=== PATIENT | male | born 1955 | race African-American/Black ===

== ENCOUNTER 2017-08-22 12:27 | Emergency (ER) | payer OTHER ==
[~2017-08-22] VITALS: Ht 175.3 cm; Wt 71.7 kg
[2017-08-22 12:42] VITALS: BP 158/99
--- NOTE | 2017-08-22 12:56 | Emergency Room Report ---
History of Present Illness General Chief Complaint: Upper Respiratory Illness Source: Patient Present Illness HPI 62 yo male presents to ER complaining of flu-like symptoms for the past week. Patient complains of cough and congestion during this time; also complains of sore throat. Reports cough with phlegm; states he used inhaler last night and felt better. Reports took Tylenol for fever and symptoms prior to ER visit. Reports taking OTC medications for cough symptoms. States was previously seen by primary care provider for flu-like symptoms a " few weeks ago". Denies chest pain, SOB, MENJIVAR, vision changes, rash. Hx of COPD. Reports hx of smoking cigarettes. Patient also complains of hx of watery diarrhea x3days. Patient reports last episode this morning, denies blood in stool. Denies recent travel out of state. Denies nausea, vomiting. States able to tolerate food and drinks PO. Allergies: Coded Allergies: No Known Allergies (Unverified , 08/22/17) Patient History Past Medical History: see triage record Reviewed Nursing Documentation: PMH: Agreed, PSxH: Agreed Nursing Documentation-PMH Past Medical History: No History, Except For Hx Hypertension: Yes Hx COPD: Yes Review of Systems All Other Systems: negative except mentioned in HPI Physical Exam Vital Signs Date Time Temp Pulse Resp B/P (MAP) Pulse Ox O2 Delivery O2 Flow Rate FiO2 08/22/17 12:30 97.9 64 18 156/101 98 Room Air 97.9 Sp02 EP Interpretation: reviewed, normal General Appearance: well appearing, no apparent distress, alert, GCS 15, non- toxic Head: normocephalic, atraumatic Eyes: bilateral eye normal inspection, bilateral eye PERRL, bilateral eye EOMI ENT: hearing grossly normal, normal pharynx, normal voice, TMs + canals normal , uvula midline, moist mucus membranes, nasal congestion, pharyngeal erythema Neck: normal inspection, full range of motion, no bony tend Respiratory: normal inspection, lungs clear, normal breath sounds, no rhonchi, no respiratory distress, no retraction, no accessory muscle use, no wheezing, speaking full sentences Cardiovascular #1: regular rate, rhythm Gastrointestinal: normal bowel sounds, non tender, soft, no mass, no organomegaly, non-distended, no guarding, no rebound Musculoskeletal: back normal, digits/nails normal, gait/station normal, normal range of motion, no calf tenderness Neurologic: alert, oriented x3, responsive, motor strength/tone normal, sensory intact, normal gait Psychiatric: mood/affect normal Skin: no rash Lymphatic: no adenopathy Medical Decision Making PA Attestation Dr. Moy is my supervising Physician whom patient management has been discussed with. Diagnostic Impression: Primary Impression: Atypical pneumonia Additional Impressions: COPD (chronic obstructive pulmonary disease) Diarrhea ER Course Pt presents to ED c/o cough and congestion. Patient also complains of diarrhea. DDX considered but are not limited to influenza, viral URI, pneumonia, strep throat, rhinitis, sinusitis. gastritis, enteritis. VITAL SIGNS are WNL, patient is afebrile. ER COURSE: Ordered EKG and CXR. Does not require breathing treatment at this time; benign physical exam. EKG shows bradycardia; no acute ST changes. Does not require treatment at this time. CXR negative for acute disease. Discuss results with patient. Will provide patient for antibiotics secondary to hx of COPD, prolonged cough, and subjective fever. DISCHARGE: -Rx provided for azithromycin. -Rx provided for promethazine cough syrup. -Patient declined need for albuterol, cough medication, or Tylenol at this time. -Patient advised to take Tylenol or Motrin at home for fever and pain symptoms. Informed patient to stay hydrated; diarrhea symptoms do not require treatment at this time. At this time pt is stable for d/c to home. Patient is resting comfortably, in no acute distress, nontoxic appearing. Patient to take medications as instructed Will provide with patient care instructions and any necessary prescriptions. Care plan and follow-up instructions provided. Patient instructed to follow-up with primary care provider in 3 - 5 days for further treatment and referral. Patient questions asked and answered. ER precautions given. Patient instructed to return to ER immediately for any new or worsening of symptoms including but not limited to increasing SOB, persistent fever. EKG Diagnostic Results Rate: bradycardiac Rhythm: NSR ST Segments: no acute changes ASA given to the pt in ED: No Rhythm Strip Diag. Results EP Interpretation: yes Rate: 50 Rhythm: NSR, no PVC's, no ectopy YISEL Scribe Text Heriberto Clay PA-C Chest X-Ray Diagnostic Results Chest X-Ray Diagnostic Results : Chest X-Ray Ordered: Yes # of Views/Limited/Complete: 1 View Indication: Chest Pain EP Interpretation: Yes PA Xray: Interpretation reviewed, by supervising MD, and agrees with findings. Interpretation: no consolidation, no effusion, no pneumothorax, no acute cardiopulmonary disease Impression: No acute disease YISEL Scribbria Text Heriberto Clay PA-C Last Vital Signs Date Time Temp Pulse Resp B/P (MAP) Pulse Ox O2 Delivery O2 Flow Rate FiO2 08/22/17 12:42 98.0 68 18 158/99 99 Room Air 98.0 Disposition: HOME, SELF-CARE Condition: Stable Scripts Promethazine Hcl (PROMETHAZINE HCL*) 6.25 Mg/5 Ml Syrup 5 ML ORAL Q8H, #120 ML 0 Refills Prov: Ravinder Clay 08/22/17 Azithromycin* (ZITHROMAX*) 250 Mg Tablet 250 MG ORAL DAILY, #6 TAB 0 Refills Take two tables once daily for 1 day, then one tablet once daily for 4 days. Prov: Ravinder Clay 08/22/17 Patient Instructions: Chronic Obstructive Pulmonary Disease Additional Instructions: Followup with primary care provider in 3 -5 days. Take medications as directed. Take Tylenol for pain symptoms. Do not use cough medication; may cause drowsiness; do not drive, operate heavy machinery and/or drink. Patient questions asked and answered. ER precautions given, patient instructed to return to ER immediately for any new or worsening of symptoms, including but not limited to fever, chest pain, SOB. Ravinder Clay Aug 22, 2017 12:56
--- NOTE | 2017-08-22 13:17 | Diagnostic Imaging Report ---
Indication: Cough Technique: One view of the chest Comparison: none Findings: Lungs and pleural spaces are clear. The heart size is upper limits of normal. The aorta is tortuous and elongated. Surgical clips are seen in the region of the gastroesophageal junction Impression: No acute process
[2017-08-22] MEDS ORDERED: ZITHROMAX250 MG ORAL (14:03)
[2017-08-22] MEDS ORDERED: PROMETHAZI6.25 MG/1 ORAL (14:03)
[2017-08-22 14:30] VITALS: BP_SYST 158; BP_SYST 165; BP_DIAS 111; BP_DIAS 99
--- NOTE | 2017-08-26 15:32 | Cardiology Report ---
APPROVED REPORT EKG Measurement Heart [id number] Sinus bradycardia Otherwise normal ECG
== END 2017-08-22 14:30 | disposition home or self-care (01) ==
LOC: EMR 13:02
DX: J18.9 Pneumonia, unspecified organism (principal); J44.9 Chronic obstructive pulmonary disease, unspecified; R19.7 Diarrhea, unspecified; Z87.891 Personal history of nicotine dependence; I10 Essential (primary) hypertension; R00.1 Bradycardia, unspecified
CPT/HCPCS: 71045; 93005; 99284

== ENCOUNTER 2019-02-21 12:53 | Emergency (ER) | payer OTHER ==
[~2019-02-21] VITALS: Ht 175.3 cm; Wt 77.6 kg
[~2019-02-21 12:53] MED LIST: PROMETHAZI6.25 MG/1 ORAL; ZITHROMAX250 MG ORAL
[2019-02-21 12:56] VITALS: BP 104/74
[2019-02-21] MEDS ORDERED: NKM (13:01)
--- NOTE | 2019-02-21 13:02 | NUR ---
ED Nurse Note: pt reported that he takes hypertensive and allergy and pain medications daily but could not recall names or dosages. pt will let nurse know when he remembers.
--- NOTE | 2019-02-21 13:12 | Emergency Room Report ---
History of Present Illness General Chief Complaint: Chest Pain Source: Patient Present Illness HPI Patient presents with complaints of left-sided chest pain Increased cough and congestion Patient reports that he has felt ill for the past 7 days was weak sleeping a lot Reports recent insect bites and swelling to the forearms which have improved Pain to the left upper chest is sharp intermittently appears to be related to his cough Denies any vomiting or diarrhea however reports decreased oral intake denies any neck pain or photophobia denies any recent travel Allergies: Coded Allergies: No Known Allergies (Unverified , 08/22/17) Patient History Past Medical History: see triage record Reviewed Nursing Documentation: PMH: Agreed; PSxH: Agreed Nursing Documentation-PMH Hx Cardiac Problems: No - h/o stroke in 2018, heart attack in 2010 Hx Hypertension: Yes Hx COPD: Yes Review of Systems All Other Systems: negative except mentioned in HPI Physical Exam Vital Signs Date Time Temp Pulse Resp B/P (MAP) Pulse Ox O2 Delivery O2 Flow Rate FiO2 02/21/19 12:56 98.1 69 17 104/74 (84) 96 Room Air Sp02 EP Interpretation: reviewed, normal General Appearance: well appearing, no apparent distress Head: normocephalic, atraumatic Eyes: bilateral eye PERRL, bilateral eye EOMI ENT: hearing grossly normal, normal pharynx, TMs + canals normal, uvula midline Neck: full range of motion, supple, no meningismus, no bony tend Respiratory: lungs clear, normal breath sounds, no rhonchi, no respiratory distress, no retraction, no accessory muscle use Cardiovascular #1: normal peripheral pulses, regular rate, rhythm, no edema, no gallop, no JVD, no murmur Gastrointestinal: normal bowel sounds, non tender, soft, no mass, no organomegaly, non-distended, no guarding, no hernia, no pulsatile mass, no rebound Genitourinary: no CVA tenderness Musculoskeletal: normal inspection Neurologic: oriented x3, responsive, telephonic case manager III-XII nml as tested, motor strength/ tone normal, sensory intact Psychiatric: normal inspection, mood/affect normal Skin: no rash Lymphatic: normal inspection, no adenopathy Medical Decision Making Last Vital Signs Date Time Temp Pulse Resp B/P (MAP) Pulse Ox O2 Delivery O2 Flow Rate FiO2 02/21/19 12:56 98.1 69 17 104/74 (84) 96 Room Air Vince Davis DO Feb 21, 2019 13:12
[2019-02-21 13:42] LABS: BASOPHILS % (AUTO) 1.6 % (0.0-2.0); EOSINOPHILS % (AUTO) 5.8 % (0.0-3.0); HEMATOCRIT 45.9 % (42.0-52.0); MEAN CORPUSCULAR VOLUME 88 FL (80-99); MONOCYTES % (AUTO) 14.9 % (1.0-10.0); NEUTROPHILS % (AUTO) 45.7 % (45.0-75.0); PLATELET COUNT 214 K/UL (150-450); RED BLOOD COUNT 5.23 M/UL (4.70-6.10); RED CELL DISTRIBUTION WIDTH 12.6 % (11.6-14.8); WHITE BLOOD COUNT 9.8 K/UL (4.8-10.8)
[2019-02-21 13:46] LABS: APPEARANCE,URINE CLEAR; BILIRUBIN, URINE NEGATIVE (NEGATIVE); COLOR,URINE PALE YELLOW; GLUCOSE, URINE (UA) NEGATIVE (NEGATIVE); KETONES,URINE NEGATIVE (NEGATIVE); LEUKOCYTE ESTERASE ,URINE 1+ (NEGATIVE); NITRITE,URINE NEGATIVE (NEGATIVE); PH,URINE 5 (4.5-8.0); PROTEIN,URINE NEGATIVE (NEGATIVE); UROBILINOGEN,URINE NORMAL MG/DL (0.0-1.0)
--- NOTE | 2019-02-21 13:47 | NUR ---
ED Nurse Note: pt tolerates iv/lab draw well. pt relates having body aches and some cp, no n/v no dyspnea. villaseñor well a/ox4 family with pt.
[2019-02-21 13:50] LABS: ANION GAP 8 mmol/L (5-15); BLOOD UREA NITROGEN 25 mg/dL (7-18); CALCIUM 9.1 MG/DL (8.5-10.1); CARBON DIOXIDE 26 MMOL/L (21-32); CHLORIDE 108 MMOL/L (98-107); CREATININE 2.6 MG/DL (0.55-1.30); POTASSIUM 3.6 MMOL/L (3.5-5.1); SODIUM 142 MMOL/L (136-145)
[2019-02-21 14:03] LABS: ALANINE AMINOTRANSFERASE 127 U/L (12-78); ALBUMIN 3.5 G/DL (3.4-5.0); ALBUMIN/GLOBULIN RATIO 0.8 (1.0-2.7); ALKALINE PHOSPHATASE 67 U/L (46-116); ASPARTATE AMINO TRANSFERASE 68 U/L (15-37); BILIRUBIN,TOTAL 0.9 MG/DL (0.2-1.0); CKMB 0.6 NG/ML (0.0-3.6); CREATINE KINASE 125 U/L (26-308)
--- NOTE | 2019-02-21 14:45 | NUR ---
ED Nurse Note:pt remains without cp or dyspnea. ivf infusing pt tolerating well
[2019-02-21 15:01] VITALS: BP 106/76
[2019-02-21 16:15] VITALS: BP 134/72
--- NOTE | 2019-02-21 16:32 | NUR ---
ER DISCHARGE NOTE: Patient is cleared to be discharged per ERMD, pt is aox4, on room air, with stable vital signs. pt was given dc and prescription instructions, pt was able to verbalize understanding, pt id band and iv site removed without complications. pt is able to ambulate with steady gait. pt took all belongings. pt given lab results and aware to take with him to pmd appt.
--- NOTE | 2019-02-22 10:51 | Diagnostic Imaging Report ---
Indication: Chest pain Technique: One view of the chest Comparison: 08/22/2017 Findings: Lungs and pleural spaces are clear. The aorta is elongated tortuous. The heart size is normal. Surgical clips project over the gastroesophageal junction. Findings are unchanged Impression: No acute process
--- NOTE | 2019-02-22 19:53 | Cardiology Report ---
APPROVED REPORT EKG Measurement Heart [id number] CO [id number] Normal sinus rhythm Normal ECG
== END 2019-02-21 16:15 | disposition home or self-care (01) ==
LOC: EMR 13:15
DX: R07.9 Chest pain, unspecified (principal); R05 Cough; J44.9 Chronic obstructive pulmonary disease, unspecified; I10 Essential (primary) hypertension; I25.2 Old myocardial infarction; Z86.73 Personal history of transient ischemic attack (TIA), and cerebral infarction without residual deficits
CPT/HCPCS: 36415; 71045; 80053; 81003; 82550; 82553; 83880; 84484; 85025; 93005; 96360; 99284

== ENCOUNTER → 2020-07-16 | Emergency (ER) | payer OTHER ==
[~2020-07-16] VITALS: Ht 175.3 cm; Wt 77.1 kg
[~2020-07-16] MED LIST changes: +COLACE100 MG ORAL; +HYDROcodone/Acetamin 5/325 tab ORAL ONE; +NKM; +NORCO 5-325 TA1 EAC1 ORAL
--- NOTE | 2020-07-16 14:00 | NUR ---
came to er complaints of alefr hand pain after falling down at home 2 days ago now the hasnd is johnny
[2020-07-16 14:27] VITALS: BP 137/93
--- NOTE | 2020-07-16 14:27 | Emergency Room Report ---
History of Present Illness General Chief Complaint: Upper Extremity Injury Source: Patient Present Illness HPI Patient is a 65-year-old male presents for increased left upper extremity pain. Reports having pain to the left forearm, wrist and left hand. Onset of symptoms approximately 2 days ago after a fall. Patient is right-hand dominant. He states he is currently retired. Reports having persistent pain since the injury. Had noticed increased welling and so presented to the ER today. Patient reports having fallen down stairs. He denies any other locations of injury. 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 Patient History Reviewed Nursing Documentation: PMH: Agreed; PSxH: Agreed Nursing Documentation-PMH Hx Cardiac Problems: No - h/o stroke in 2018, heart attack in 2009 Hx Hypertension: Yes Hx COPD: Yes Review of Systems All Other Systems: negative except mentioned in HPI Physical Exam General Appearance: well appearing, no apparent distress, alert, GCS 15 Head: normocephalic, atraumatic ENT: hearing grossly normal, normal voice Neck: full range of motion, supple Respiratory: no respiratory distress, speaking full sentences Musculoskeletal: other - Soft tissue swelling to the left hand, left forearm, no erythema, no lacerations Neurologic: alert, motor strength/tone normal, 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 Differential diagnosis include was not limited to fracture, contusion, muscle injury, among others. Patient appears to have preserved hand function although his hand is markedly swollen. The fingertips appear to be neurovascularly intact with good perfusion and cap refill. Patient's x-ray imaging read by radiology showed no acute fracture however I do believe there is a slight nondisplaced ulnar styloid fracture. Patient was placed in a removable splint. He is advised to follow-up with his primary care physician for orthopedic referral. He was advised to return if worse. The patient is advised to follow up with primary care doctor in 1-2 days. Patient is advised to return if any worsening condition or if any changes in status that are concerning. This report is dictated with [employer] vacuum pan tender software which may occasionally lead to discrepancies related to use of this software. Status: improved Disposition: HOME, SELF-CARE Condition: Stable Scripts Docusate Sodium* (COLACE*) 100 Mg Capsule 100 MG ORAL TWICE A DAY, #20 CAP Prov: Heath Swenson MD 07/16/20 Hydrocodone Bit/Acetaminophen 5-325* (NORCO 5-325 TABLET*) 1 Each Tablet 1 TAB ORAL Q6H PRN for FOR PAIN, #12 TAB 0 Refills Prov: Heath Swenson MD 07/16/20 Referrals: [facility],REFERRING (PCP) Heath Swenson MD Jul 16, 2020 14:27
--- NOTE | 2020-07-16 14:30 | NUR ---
meds given x-rays completed waiting for re-eval
--- NOTE | 2020-07-16 15:36 | Diagnostic Imaging Report ---
FILM LEFT HAND LEFT HAND, 3 views INDICATION: Trauma COMPARISON: None FINDINGS: 3 views of the left hand are obtained. Bony structures are intact. Bone mineralization is within normal limits. Joint space narrowing demonstrated with fixation hardware in the ulna. Soft tissue swelling demonstrated. Prior fracture of the base of the proximal phalanx of the fifth digit. No radio-opaque foreign bodies seen. IMPRESSION: No acute fracture. Soft tissue swelling.
--- NOTE | 2020-07-16 15:38 | Diagnostic Imaging Report ---
FILM LEFT FOREARM LEFT FOREARM, ( 2 ) VIEWS INDICATION: Trauma COMPARISON: None FINDINGS: 2 views of the left radius and ulna are obtained. Fixation hardware within the ulna Bony structures are intact. Bone mineralization is within normal limits. Soft tissues are unremarkable. No radio-opaque foreign bodies seen. IMPRESSION: No acute fracture.
[2020-07-16 16:16] VITALS: BP 137/93
== END | disposition home or self-care (01) ==
LOC: EMR 14:20
DX: S62.102A Fracture of unspecified carpal bone, left wrist, initial encounter for closed fracture (principal); W19.XXXA Unspecified fall, initial encounter; Y92.9 Unspecified place or not applicable; I10 Essential (primary) hypertension; J44.9 Chronic obstructive pulmonary disease, unspecified
CPT/HCPCS: 73090; 73130; Z7502; 99283